=== PATIENT | female | born 1960 | race Caucasian/White ===

== ENCOUNTER 2019-06-30 14:35 | Outpatient (CLI) | payer BC ==
[2019-06-30] MEDS ORDERED: ATEN25TA PO (15:23)
[2019-06-30] MEDS ORDERED: LISI-170 PO (15:23)
[2019-06-30 15:43] LABS: ALANINE AMINOTRANSFERASE 33 U/L (12-78); ANION GAP 6 mmol/L (5-15); CALCIUM 8.4 mg/dL (8.5-10.1); CHLORIDE 105 mmol/L (98-107); CREATININE 0.77 mg/dL (0.55-1.02)
[2019-06-30 15:45] LABS: ALKALINE PHOSPHATASE 89 U/L (45-117); BILIRUBIN,TOTAL 0.3 mg/dL (0.2-1.0); TOTAL PROTEIN 7.3 g/dL (6.4-8.2)
== END 2019-06-30 23:59 | disposition home or self-care (01) ==
LOC: STAR 14:35
PROVIDERS: ATTEND Obstetrics & Gynecology Female Pelvic Medicine and Reconstructive Surgery
DX: Z01.818 Encounter for other preprocedural examination (principal); D21.9 Benign neoplasm of connective and other soft tissue, unspecified; N83.202 Unspecified ovarian cyst, left side; Z82.49 Family history of ischemic heart disease and other diseases of the circulatory system
CPT/HCPCS: 36415; 80053

== ENCOUNTER 2019-07-28 08:35 | Day surgery (SDC) | payer BC ==
[~2019-07-28] VITALS: Ht 160 cm; Wt 92.0 kg
[~2019-07-28 08:35] MED LIST: ATEN25TA PO; DEXAMETHASONE 4 MG/ML, 1ML ONE; FENTANYL PF 100 MCG/2ML ONE; LIDOCAINE-MPF 2% ,5ML ONE; LISI-170 PO; MIDAZOLAM 1 MG/ML, 2ML ONE; ONDANSETRON 2MG/ML, 2ML ONE; PROPOFOL 10 MG/ML, 20ML ONE; ROCURONIUM 10MG/ML,5ML ONE
[2019-07-28] MEDS ORDERED: LACTATED RINGERS 1,000 ML IV SCH ×2 (09:07→11:49)
[2019-07-28] MEDS ORDERED: GABAPENTIN 300 MG CAPSULE PO ONE (09:30)
[2019-07-28] MEDS ORDERED: ACETAMINOPHEN 500 MG TABLET PO ONE (09:30)
[2019-07-28] MEDS ORDERED: SCOPOLAMINE PATCH, 1.5MG PATCH.TD72 TD ONE (09:30)
[2019-07-28] MEDS ORDERED: INDIGO CARMINE 0.8%, 5ML ONE (09:55)
[2019-07-28] MEDS ORDERED: BUPIVACAINE 0.25% ONE (09:55)
[2019-07-28] MEDS ORDERED: THROMBIN 5,000 UNIT VIAL TP ONE (09:55)
[2019-07-28] MEDS ORDERED: LORazepam 2 MG/ML, 1ML IVPush PRN (10:00)
[2019-07-28] MEDS ORDERED: OXYcodone 5 MG/5 ML ORAL.SOL UDC PO PRN (10:00)
[2019-07-28] MEDS ORDERED: LABETALOL 5MG/ML, 20ML IV PRN (10:00)
[2019-07-28] MEDS ORDERED: METOPROLOL 1 MG/ML, 5ML IV PRN (10:00)
[2019-07-28] MEDS ORDERED: ONDANSETRON 2MG/ML, 2ML IV PRN (10:00)
[2019-07-28] MEDS ORDERED: DIPHENHYDRAMINE 50 MG/ML, 1ML IVPush PRN (10:00)
[2019-07-28] MEDS ORDERED: hydrALAzine 20 MG/ML, 1ML IV PRN (10:00)
[2019-07-28] MEDS ORDERED: MEPERIDINE/PF 25MG/ML,1ML IVPush PRN (10:00)
[2019-07-28] MEDS ORDERED: CEFOTETAN PMX 2GM/50ML 50 ML ONE (10:13)
[2019-07-28] MEDS ORDERED: ONDANSETRON 2MG/ML, 2ML IVPush PRN (12:00)
[2019-07-28] MEDS ORDERED: PROMETHAZINE 25 MG SUPP PR ONE (12:00)
[2019-07-28] MEDS ORDERED: IBUPROFEN 600 MG TABLET PO PRN (12:00)
[2019-07-28] MEDS ORDERED: HYDROcodone/APAP 5/325 TABLET PO PRN (12:00)
[2019-07-28] MEDS ORDERED: FENTANYL PF 100 MCG/2ML ONE (12:08)
[2019-07-28] MEDS ORDERED: HYDROmorphone 1 MG/ML, 1ML VIAL ONE (12:09)
[2019-07-28] MEDS: FENTANYL PF 100 MCG/2ML IV PRN ×2 (12:10→12:19)
[2019-07-28] MEDS: HYDROmorphone 2 MG/ML, 1ML IVPush PRN ×2 (12:12→12:45)
[2019-07-28] MEDS ORDERED: METOCLOPRAMIDE 5 MG/ML, 2ML ONE (17:19)
== END 2019-07-28 16:00 | disposition home or self-care (01) ==
LOC: OUT 08:35
PROVIDERS: ATTEND Obstetrics & Gynecology Female Pelvic Medicine and Reconstructive Surgery
DX: R10.2 Pelvic and perineal pain (principal); N92.6 Irregular menstruation, unspecified; D25.9 Leiomyoma of uterus, unspecified; N80.0 Endometriosis of uterus; N83.8 Other noninflammatory disorders of ovary, fallopian tube and broad ligament; N83.292 Other ovarian cyst, left side; N83.291 Other ovarian cyst, right side; I10 Essential (primary) hypertension; Z79.899 Other long term (current) drug therapy; Z80.9 Family history of malignant neoplasm, unspecified
CPT/HCPCS: 58571; 88307; J1100; J1170; J2250; J2405; J2704; J2765; J3010; J3490; J7120; S2900